=== PATIENT | female | born 1970 | race Caucasian/White ===

== ENCOUNTER 2018-06-09 13:00 | Inpatient (IN) | payer MEDICAID, OTHER ==
[~2018-06-09] VITALS: Ht 154.9 cm; Wt 73.6 kg
[2018-08-06] VITALS (35 sets, daily range): BP systolic 103–140; BP diastolic 61–81; PULSE 66–109; RESP 12–25; Ht 154.9 cm; Wt 73.6 kg
[2018-08-06] MEDS ORDERED: ONDANSETRON 4 MG INJ ONE (07:00)
[2018-08-06] MEDS ORDERED: METOPROLOL 5 MG INJ ONE (07:00)
[2018-08-06] MEDS ORDERED: CLINDAMYCIN 900 MG/50 ML D5W IVPB IVPB ONE (07:00)
[2018-08-06] MEDS ORDERED: METOCLOPRAMIDE 10 MG INJ ONE (07:00)
[2018-08-06] MEDS ORDERED: DEXAMETHASONE 4 MG/ML 5 ML INJ ONE (10:18)
[2018-08-06] MEDS ORDERED: LIDOCAINE 2% (SDV) 5 ML INJ ONE (10:18)
[2018-08-06] MEDS ORDERED: PROPOFOL 20 ML ONE (10:18)
[2018-08-06] MEDS ORDERED: MIDAZOLAM 1 MG/ML 2 ML INJ ONE (10:18)
[2018-08-06] MEDS ORDERED: ROCURONIUM 50 MG INJ ONE (10:18)
[2018-08-06] MEDS ORDERED: SUCCINYLCHOLINE CHLORIDE 100 MG/5 ML SYG IV ONE (10:18)
[2018-08-06] MEDS ORDERED: FENTAnyl 50 MCG/ML VIAL ONE (10:18)
--- NOTE | 2018-08-06 10:42 | PREAC ---
Date/Time of Note Date/Time of Note DATE: 08/06/18 TIME: 10:41 Anesthesia Eval and Record Evaluation Time Pre-Procedure Interview DATE: 08/06/18 TIME: 10:41 Age 47 Sex female NPO: 8 hrs Preoperative diagnosis cervical spinal stenosis Planned procedure anterior cervical spinal fusion/decompression Past Medical History Past Medical History: Includes Neuro: Peripheral neuropathy, Other (cervical radiculopathy) Surgery & Anesthesia Issues Hx of difficult intubation, No known issue Meds Anticoagulation: No Beta Skye within 24 hr: No Reason Beta Skye not given: Pt. not on B-Skye No Active Prescriptions or Reported Meds Meds reviewed: Yes Allergies Coded Allergies: Penicillins (Verified Allergy, Unknown, rash, dizziness, 08/06/18) Allergies Reviewed: Yes Labs/Studies Labs Reviewed: Reviewed by anesthesiologist test: Negative Pre-procedure Exam Last vitals Vital Signs Date Temp Pulse Resp B/P (MAP) Pulse Ox O2 O2 Flow FiO2 Time Delivery Rate 08/06/18 97.8 66 18 105/65 98 Room Air 09:57 (78) Airway: Adequate mouth opening, Adequate thyromental dist Mallampati: Mallampati III Teeth: Normal Lung: Normal Heart: Normal ASA Physical Status ASA physical status: 2 Emergency: None Planned Anesthetic General/MAC: ETT Planned Pain Management Parenteral pain med, Other neuraxial med, Local by surgeon Pre-operative Attestations Prior to commencing anesthesia and surgery, the patient was re-evaluated, there was verification of: *The patient's identity *The results of appropriate recent lab work and preoperative vital signs *The above evaluation not changing prior to induction *Anesthetic plan, risk benefits, alternative and complications discussed with patient/family; questions answered; patient/family understands, accepts and wishes to proceed. JENNIFER DE ANDA MD Aug 06, 2018 10:42
[2018-08-06] MEDS ORDERED: GELATIN SIZE 100 SPONGE ONE (10:44)
[2018-08-06] MEDS ORDERED: BUPIVACAINE 0.5%/EPI (SDV) 30 ML INJ ONE (10:45)
[2018-08-06] MEDS ORDERED: POLYMYXIN/BACITRACIN 1L IRRIG ONE (10:45)
[2018-08-06] MEDS ORDERED: THROMBIN 5000 UNIT VIAL ONE (10:45)
[2018-08-06] MEDS ORDERED: MIDAZOLAM 1 MG/ML 2 ML INJ IV PRN (11:00)
[2018-08-06] MEDS ORDERED: HYDROmorphONE 1 MG/5 ML IV SYRINGE IV PRN ×3 (11:00)
[2018-08-06] MEDS ORDERED: morphine 2 MG INJ IV PRN (11:00)
[2018-08-06] MEDS ORDERED: FENTAnyl 50 MCG/ML VIAL IV PRN ×2 (11:00)
[2018-08-06] MEDS ORDERED: HALOPERIDOL 5 MG INJ IV PRN (11:00)
[2018-08-06] MEDS ORDERED: LABETALOL HCL 20MG INJ IV PRN (11:00)
[2018-08-06] MEDS ORDERED: LEVALBUTEROL (NEB) 1.25 MG/0.5 ML AMP HHN PRN (11:00)
[2018-08-06] MEDS ORDERED: MEPERIDINE 25 MG INJ IV PRN (11:00)
[2018-08-06] MEDS ORDERED: IPRATROPIUM (NEB) 0.5 MG/2.5 ML AMP HHN PRN (11:00)
[2018-08-06] MEDS ORDERED: DIPHENHYDRAMINE 50 MG INJ IV PRN (11:00)
[2018-08-06] MEDS ORDERED: ONDANSETRON 4 MG INJ IV PRN (11:00)
[2018-08-06] MEDS ORDERED: niCARdipine 50 MG in SOD CHLORIDE 0.9% 480 ML IV SCH (11:00)
[2018-08-06] MEDS ORDERED: hydrALAzine 20 MG INJ IV PRN (11:00)
[2018-08-06] MEDS ORDERED: LORAZEPAM 2 MG INJ IV PRN (11:00)
--- NOTE | 2018-08-06 11:31 | HPN ---
Date/Time of Note Date/Time of Note DATE: 08/06/18 TIME: 11:30 Interval H&P Admission Note Pt. seen H&P reviewed: No system changes CLINT CARTER PA-C Aug 06, 2018 11:31
[2018-08-06] MEDS ORDERED: SUGAMMADEX SODIUM 200 MG/2 ML VIAL IV ONE (12:07)
[2018-08-06] MEDS ORDERED: HYDROmorphONE 2 MG/ML SYG ONE (12:19)
--- NOTE | 2018-08-06 12:30 | OPR ---
Date/Time of Note Date/Time of Note DATE: 08/06/18 TIME: 12:28 Operative Report Procedure Date: Aug 06, 2018 Preoperative Diagnosis CERVICAL SPONDYLOSIS WITH QUADRIPARESIS C5-6 CERVICAL CORD COMPRESSION WITH MYELOPATHY Postoperative Diagnosis SAME Operation/Procedure Performed CERVICAL PARTIAL VERTEBRECTOMY AND DISKECTOMY AT C5 AND C6 WITH INTERBODY FUSION AND ANTERIOR LOCKING PLATE Surgeon see signature line Leather Sponger FOREIGN COWAN Anesthesia Type: general Anesthesiologist: A Estimated Blood Loss: 10 - 50 ml's Transfusion none Specimen DISC OF C5-6 Grafts/Implants none Complications none Pt Condition Post Procedure: stable Disposition: PACU Procedure Description SEE DICTATION MARCUS ROBERSON MD Aug 06, 2018 12:30
--- NOTE | 2018-08-06 12:48 | NUR ---
PACU SP C5-6 CERVICAL ANTERIOR INSTRUMENTATION,FUSION, DECOMPRESSION DISCECTOMY.CERVICAL COLLAR APPLIED IN OR. ANTERIOR NECK DSG DRY/INTACT. VSS. NO SS OF ACUTE PAIN OR DISTRESS NOTED. CALLED , NEW ORDERS OBTAINED TO CHANGE PT STATUS TO MS. COND STABLE. Addendum: 08/06/18 at 1324 by JAYME BAR RN Amended: Links added.
--- NOTE | 2018-08-06 12:53 | PAC ---
Date/Time of Note Date/Time of Note DATE: 08/06/18 TIME: 12:52 Post-Anesthesia Notes Post-Anesthesia Note Last documented vital signs Vital Signs Date Temp Pulse Resp B/P (MAP) Pulse Ox O2 O2 Flow FiO2 Time Delivery Rate 08/06/18 97.8 66 18 105/65 98 Room Air 09:57 (78) Activity: WNL Respiratory function: WNL Cardiovascular function: WNL Mental status: Baseline Pain reasonably controlled: Yes Hydration appropriate: Yes Nausea/Vomiting absent: Yes JENNIFER DE ANDA MD Aug 06, 2018 12:53
[2018-08-06] MEDS: CLINDAMYCIN 600 MG/D5W (PMX) 50 ML IVPB SCH ×2 (14:00→18:00)
--- NOTE | 2018-08-06 15:09 | NUR ---
PACU TRANSFERRED TO ICU 103 IN STABLE COND. PT MED SURG STATUS. VSS AT TIME OF TRANSPORT. PAIN 0. REPORT GIVEN TO SCHOOL TRANSPORTATION SUPERVISOR. Addendum: 08/06/18 at 1812 by JAYME BAR RN Amended: Links added.
[2018-08-06] MEDS: DEXAMETHASONE 4 MG/ML 1 ML INJ IV SCH ×2 (15:30→20:05)
[2018-08-06] MEDS ORDERED: morphine 4 MG/ML VIAL ONE (15:38)
[2018-08-06] MEDS: HYDROCODONE/APAP (5/325) TAB PO PRN ×2 (15:48→23:48)
[2018-08-06] MEDS: DEXTROSE 5%-LR 1,000 ML IV SCH (16:00)
--- NOTE | 2018-08-06 22:54 | NUR ---
TRANSFER Report given to CECELIA Ignacio on 4W. All questions answered and care acknowledged/transferred. Pt. VSS and no complaints. emergency room technician notified.
--- NOTE | 2018-08-06 23:00 | HP ---
DATE OF ADMISSION: 08/06/2018 CHIEF COMPLAINT AND HISTORY OF PRESENT ILLNESS: The patient is a 47-year-old female who was seen by Dr. Roberson as an outpatient for cervical spondylosis with quadriparesis. The patient had C5-C6 cerv ical cord compression with myelopathy. The patient was brought into hospital today and underwent cer vical partial vertebrectomy and diskectomy at C5-C6 with interbody fusion and anterior locking plate. The patient is being admitted in ICU for further care. The patient has a C-spine collar at this ti me. Denies any chest pain or shortness of breath. No recent fall. No history of fever or chills. No history of bladder or bowel incontinence prior to surgery. No history of leg edema. No history o f shortness of breath. No history of cardiac disease, hypertension or diabetes. No history of CVA i n the past. REVIEW OF SYSTEMS: Other than postoperative pain and quadriparesis, rest of review of systems is unr emarkable. PAST SURGICAL HISTORY: The patient is status post x3. ALLERGIES: PENICILLIN. SOCIAL HISTORY: No smoking or alcohol. FAMILY HISTORY: Noncontributory. PHYSICAL EXAMINATION: GENERAL: The patient is awake, alert, fairly oriented. VITAL SIGNS: Temperature 98, pulse 106, respiratory rate ____, blood 130/70, and O2 sat 99% on room air. HEENT: Atraumatic. Conjunctivae normal. Oropharynx grossly negative. Examination was deferred due to recent surgery. NECK: C-spine collar in place. CHEST: Fairly clear. CARDIOVASCULAR: S1, S2 normal. No murmur. ABDOMEN: Soft and nontender. EXTREMITIES: No leg edema. NEUROLOGIC: The patient is awake, alert, fairly oriented with the generalized weakness, although det an examination was deferred due to recent postoperative state. The patient was able to move all e xtremities. IMPRESSION: Cervical spondylosis with quadriparesis at C5-C6, cervical cord compression with myelopa thy status post cervical partial vertebrectomy and diskectomy at C5-C6. PLAN: The patient will be admitted in ICU. The patient will be started on IV clindamycin as per pro tocol and IV fluids. The patient also will be given IV Decadron. For pain, patient will be started on Tylenol, Powell and IV morphine. We will use SCD for DVT prophylaxis. Plan of care was discussed with patient's family. We will do followup labs. Dictated By: SILVIA VANN/ALPHONSE Conf#: [id number] DID#: [id number] CC: MARCUS ROBERSON MD;*EndCC*
--- NOTE | 2018-08-06 23:20 | NUR ---
RN NOTES: RECEIVED PATIENT FROM ICU VIA WHEELCHAIR , ACCOMPANIED BY SPOUSE. ALERT AND ORIENTED, HAS CERVICAL DGS CDI, CERVICAL COLLAR IN USE. HL ON LEFT HAND PATENT. NOTED RIGHT FOREARM SWOLLEN, PATIENT REPORTED IT WAS AFTER THE SURGERY. PATIENT NOTED WITH STEADY GAIT FWW IN USE. WILLIAM CATHETER IN PLACE DRAINING CLEAR URINE. UNIT ORIENTATION GIVEN. CALL LIGHT WITHIN REACH. BED ALARM ACTIVATED.
[2018-08-06] MEDS: ONDANSETRON 4 MG INJ IV PRN (23:52)
[2018-08-07] VITALS: BP 140/67; PULSE 97; RESP 18
[2018-08-07] MEDS: CLINDAMYCIN 600 MG/D5W (PMX) 50 ML IVPB SCH ×4 (00:15→17:53)
--- NOTE | 2018-08-07 01:30 | NUR ---
RN NOTES: BILATERAL FEET NOTED WITH TRACE OF SWELLING. ELEVATED BOTH FEET ON PILLOWS.
[2018-08-07] MEDS: DEXAMETHASONE 4 MG/ML 1 ML INJ IV SCH ×3 (04:46→11:52)
[2018-08-07] MEDS: DEXTROSE 5%-LR 1,000 ML IV SCH ×3 (05:30→11:51)
--- NOTE | 2018-08-07 06:31 | NUR ---
EOSS: PATIENT BEEN ASSESSED FOR PAIN, AND MEDICATED WITH NORCO NEEDED. CERVICAL DSG REMAIN CDI. COLLAR IN USE AT ALL TIME. WILLIAM CONTINUE TO DRAIN YELLOW CLEAR URINE. TOLERATING CLEAR LIQUIDS. VITALS STABLE. HOURLY ROUNDING RENDERED. CALL LIGHT WITHIN REACH. FALL PRECAUTION OBSERVED.
[2018-08-07 07:29] VITALS: BP 117/66; PULSE 101; RESP 19
[2018-08-07] MEDS: HYDROCODONE/APAP (5/325) TAB PO PRN ×2 (10:29→17:58)
--- NOTE | 2018-08-07 15:16 | NUR ---
PT VERONICA [facility] Patient: Jacqui Martinez : 1970 Age/Sex: 47/F Unit#: [id number] Room/Bed: 426/A User: Srinivasan Mcdonough PT Date: 08/07/18 14:36 Type: PT Technical Record Therapy day number 1 Evaluation Start Time 14:36 Evaluation Total Time 0 min Subjective Current complaint of pain Pain Scale NUMERIC Pain Intensity 2 (0-10) Patient Stated Goal for Pain Relief 0 (0-10) Pain Level Comment neck pain and headache Pre Treatment Vital Signs Stable Yes - 109/62, 96%O2 sats on RA, 91bpm Exercise Assessment Label Bilat Lower Extremity Exercise Type Active ROM Additional Exercise Comments semi-supine APs, heel slides Supine to Sit Contact Guard Assist Transfer Sit to Stand Ability Contact Guard Assist Bed Mobility Sit to Supine Minimum Assist Bed Transfer Ability Contact Guard Assist Chair Transfer Ability Contact Guard Assist Sitting Tolerance 12 min Additional Mobility Comments log-roll technique supine<>sitting Patient uses wheelchair Not Applicable Gait Assist Levels Stand by Assist Assistive Devices Front Wheel Walker Ambulation Distance 70 feet Additional Gait Comments 70' x 3 with FWW and standing rest breaks between ambulation bouts; see PT Weight Bearing Assessment Label Bilat Lower Extremity Weight Bearing Status Weight Bearing as Li Additional Stairs Assist Comments TBA Static Sitting Balance Good Dynamic Sitting Balance Good Standing Static Balance Fair plus Dynamic Standing Balance Fair plus Additional Balance Assessments Comments FWW Safety Judgement Good Activity Tolerance Good Equipment Present Hull Catheter IV pump Additional Equipment Present rigid cervical collar Post Treatment Pain Intensity 0 0-10 Variance Documentation SEE PT EVAL PT Technical Record Comment PT VERONICA Pt is a 47 yo F with PMH of cervical spondylosis with quadriparesis, cervical cord compression with myelopathy who is now S/P partial vertebrectomy and diskectomy at C5-C6 with interbody fusion and anterior lock plate on 08/06/18. Pt received in 4W, med/surg. Precautions: rigid cervical collar, spinal precautions PLOF: Pt lives with and dtrs in 2nd floor apartment with no elevator access. Ambulatory without AD, does not own any DME. Pt was not working, and was driving prior to surgery. CLOF: CECELIA Ewing cleared pt for PT evaluation. Pt received semi-supine in bed donning rigid cervical collar, agreeable to PT evaluation, vitals assessed and stable, family at bedside. Pt educated in spinal precautions and use of rigid cervical collar. Noted with ROM testing, pt with B poiser weakness. Bed mobility, transfer, and gait assessment as described above. Noted with gait, pt required standing rest breaks after ~70' reporting increased R-sided hand, shoulder/neck discomfort. Pt returned to bed, all needs in reach, no signs of disterss, bed alarm activated, RN notified of pt's status. Recommendation: Pt demonstrates steady, stable gait with use of FWW and demonstrates safety with mobility tasks maintaining spinal precautions. Gait distance limited to 70' bouts due to increased R hand and neck/shoulder discomfort. Recommend SPC training or amb without AD if pt presents with good static standing balance. Stair assessment TBA. Anticipating home discharge with family assistance as needed, pt with good family support. Anticipated DME TBD. Plan: Continue c PT POC (BID x 6), including stair training PT CLEARED TO AMB WITH NURSING STAFF TO RESTROOM USING FWW
[2018-08-07 15:59] VITALS: BP 121/62; RESP 19
--- NOTE | 2018-08-07 18:15 | CONS ---
Date/Time of Note Date/Time of Note DATE: 08/07/18 TIME: 18:14 Assessment/Plan Assessment/Plan Assessment/Plan seen/examined awake alert follows moves all c5-6 acdf good post op progress wound looks ok cont pt/ot poss dc home in 24hrs. Result Diagram: 08/07/18 0419 08/07/18 0419 Results 24hrs Laboratory Tests Test 08/07/18 04:19 White Blood Count 9.9 Red Blood Count 3.59 L Hemoglobin 11.7 L Hematocrit 34.0 L Mean Corpuscular Volume 94.7 Mean Corpuscular Hemoglobin 32.6 Mean Corpuscular Hemoglobin Concent 34.4 Red Cell Distribution Width 12.2 Platelet Count 264 Mean Platelet Volume 10.5 H Immature Granulocytes % 0.300 Neutrophils % 91.6 H Lymphocytes % 5.6 L Monocytes % 2.3 Eosinophils % 0.0 Basophils % 0.2 Nucleated Red Blood Cells % 0.0 Immature Granulocytes # 0.030 Neutrophils # 9.1 H Lymphocytes # 0.6 L Monocytes # 0.2 L Eosinophils # 0.0 Basophils # 0.0 Nucleated Red Blood Cells # 0.0 Sodium Level 137 Potassium Level 4.0 Chloride Level 107 Carbon Dioxide Level 22 Anion Gap 8 Blood Urea Nitrogen 9 Creatinine 0.41 L Est Glomerular Filtrat Rate mL/min > 60 Glucose Level 197 Calcium Level 8.9 Total Bilirubin 0.1 L Direct Bilirubin 0.00 Indirect Bilirubin 0.1 Aspartate Amino Transf (AST/SGOT) 21 Alanine Aminotransferase (ALT/SGPT) 20 Alkaline Phosphatase 45 Total Protein 6.1 Albumin 3.6 Globulin 2.50 Albumin/Globulin Ratio 1.44 Consultation Date/Type/Reason Admit Date/Time Aug 06, 2018 at 08:30 Initial Consult Date Exam/Review of Systems Vital Signs Vitals Vital Signs Date Temp Pulse Resp B/P (MAP) Pulse Ox O2 O2 Flow FiO2 Time Delivery Rate 08/07/18 19 121/62 96 15:59 (81) 08/07/18 98.2 101 07:29 08/06/18 Room Air 22:00 08/06/18 2.0 15:05 Intake and Output 08/06/18 08/06/18 08/07/18 1515:00 23:00 07:00 IntakeIntake Total 1000 ml 870 ml 700 ml OutputOutput Total 125 ml 250 ml 1200 ml BalanceBalance 875 ml 620 ml -500 ml Medications Medications Current Medications Ondansetron HCl (Zofran Inj) 4 mg Q6H PRN IV NAUSEA AND/OR VOMITING Last administered on 08/06/18at 23:52; Admin Dose 4 MG; Start 08/06/18 at 11:00 Morphine Sulfate (morphine) 2 mg Q4H PRN IV SEVERE PAIN LEVEL 7-10; Start 08/06/18 at 11:00 Acetaminophen/ Hydrocodone Bitart ([place] (5/325)) 1 tab Q4H PRN PO MODERATE PAIN LEVEL 4-6 Last administered on 08/07/18at 17:58; Admin Dose 1 TAB; Start 08/06/18 at 11:00 Clonidine (Catapres) 0.1 mg Q6H PRN PO ELEVATED DIASTOLIC BP; Start 08/06/18 at 13:30 Acetaminophen (Tylenol Tab) 500 mg Q4H PRN PO MILD PAIN(1-3)OR ELEVATED TEMP; Start 08/06/18 at 23:00 Clindamycin HCl/ Dextrose 50 ml @ 50 mls/hr Q6 IVPB Last administered on 08/07/18at 17:53; Admin Dose 50 MLS/HR; Start 08/07/18 at 00:00; Stop 08/07/18 at 23:59 CLINT CARTER PA-C Aug 07, 2018 18:15
[2018-08-07] MEDS: ONDANSETRON 4 MG INJ IV PRN (18:50)
[2018-08-07] MEDS: ACETAMINOPHEN 500 MG TAB PO PRN (18:56)
--- NOTE | 2018-08-07 19:19 | NUR ---
Patient is alert and oriented x4, able to make needs known; PRN [place] and TYL given as needed for headache with good effectiveness noted; no episode of SOB/respiratory distress noted this shift; patient c/o nausea, PRN Zofran given as ordered; patient ambulated with PT and was cleared to ambulate with nursing; dressing to anterior neck incision is clean, dry and intact with rigid cervical collar in place; Hull catheter was removed as ordered, patient still due to void, will endorse to next shift RN; kept clean and comfortable; all needs attended.
[2018-08-07 20:15] VITALS: BP 135/68; PULSE 86; RESP 18
--- NOTE | 2018-08-07 23:00 | NUR ---
RN NOTES Report given to Natalia RAI for continuity of care
[2018-08-08 02:00] VITALS: BP 130/62; PULSE 93; RESP 18
--- NOTE | 2018-08-08 06:49 | NUR ---
EOSS: RECEIVED REPORT FROM TOMAS, PATIENT STABLE THE ENTIRE SHIFT, DENIES PAIN, CERVICAL COLLAR IN PLACE, DRESSING DRY & INTACT. NEEDS MET & KEPT COMFORTABLE. WILL CONTINUE POC.
[2018-08-08 07:42] VITALS: BP 119/68; PULSE 69; RESP 16
--- NOTE | 2018-08-08 09:37 | CONS ---
Date/Time of Note Date/Time of Note DATE: 08/08/18 TIME: 09:37 Assessment/Plan Assessment/Plan Assessment/Plan seen/ examined awake alert follows moves all minimal pain wound ok may go home. Result Diagram: 08/07/18 0419 08/07/18 0419 Results 24hrs Laboratory Tests Test 08/08/18 07:03 Lab Scanned Report REFERENCE LAB Consultation Date/Type/Reason Admit Date/Time Aug 06, 2018 at 08:30 Initial Consult Date Exam/Review of Systems Vital Signs Vitals Vital Signs Date Temp Pulse Resp B/P (MAP) Pulse Ox O2 O2 Flow FiO2 Time Delivery Rate 08/08/18 98.4 69 16 119/68 100 Room Air 07:42 (85) 08/06/18 2.0 15:05 Intake and Output 08/07/18 08/07/18 08/08/18 1515:00 23:00 07:00 IntakeIntake Total 50 ml 900 ml OutputOutput Total 1800 ml BalanceBalance 50 ml -900 ml Medications Medications Current Medications Ondansetron HCl (Zofran Inj) 4 mg Q6H PRN IV NAUSEA AND/OR VOMITING Last administered on 08/07/18at 18:50; Admin Dose 4 MG; Start 08/06/18 at 11:00 Morphine Sulfate (morphine) 2 mg Q4H PRN IV SEVERE PAIN LEVEL 7-10; Start 08/06/18 at 11:00 Acetaminophen/ Hydrocodone Bitart ([place] (5/325)) 1 tab Q4H PRN PO MODERATE PAIN LEVEL 4-6 Last administered on 08/07/18at 17:58; Admin Dose 1 TAB; Start 08/06/18 at 11:00 Clonidine (Catapres) 0.1 mg Q6H PRN PO ELEVATED DIASTOLIC BP; Start 08/06/18 at 13:30 Acetaminophen (Tylenol Tab) 500 mg Q4H PRN PO MILD PAIN(1-3)OR ELEVATED TEMP Last administered on 08/07/18at 18:56; Admin Dose 500 MG; Start 08/06/18 at 23:00 CLINT CARTER PA-C Aug 08, 2018 09:37
--- NOTE | 2018-08-08 10:12 | NUR ---
PT NOTE Therapy day number 2 Subjective Denies pain Pain Scale FACES Pain Intensity 0 (0-10) Patient Stated Goal for Pain Relief 0 (0-10) Pain Level Comment neck "tight", deneis pain, declines pain med Pre Treatment Vital Signs Stable Yes Exercise Assessment Label Bilat Lower Extremity Additional Exercise Comments bed mobility tr with log rolling Transfer Training Start Time 10:12 Transfer Sit to Stand Ability Stand by Assist Bed Mobility Sit to Supine Contact Guard Assist Bed Transfer Ability Stand by Assist Chair Transfer Ability Stand by Assist Sitting Tolerance 15 min Additional Mobility Comments log-roll technique supine<>sitting, FWW for transfers Transfer Training End Time 10:26 Total Transfer Training Time 14 min (8-127) Gait Training Start Time 10:26 Gait Assist Levels Stand by Assist Assistive Devices Front Wheel Walker Ambulation Distance 150 feet Additional Gait Comments mult stand rest breaks 2/2 fatigue, rciprocal, decr aramis, no LOB/dizz Gait Training End Time 10:40 Total Gait Training Treatment Time 14 min (8-127) Weight Bearing Assessment Label Bilat Lower Extremity Weight Bearing Status Weight Bearing as Harlan Stair Training Start Time 10:40 Stair Climbing Ability Stand by Assist Number of Stairs 12 Stairs Additional Stairs Assist Comments 4 stairs x3, 2 HR, step to, no LOB/buckling/dizz Stair Training End Time 10:50 Total Stair Training Time 10 min (8-127) Static Sitting Balance Good Dynamic Sitting Balance Good Standing Static Balance Fair plus Dynamic Standing Balance Fair plus Additional Balance Assessments Comments FWW Safety Judgement Good Activity Tolerance Good Equipment Present A pump Additional Equipment Present rigid cervical collar Post Treatment Pain Intensity 0 0-10 Additional Post Treatment Comment See Below Total Treament Time 38 min (8-127) Total Minutes 38 Total Units 3 PT Technical Record Comment PT NOTE S: Pt reports no pain, or dizziness pre-tx, agreeable to PT. Cleared for PT Per CECELIA Selby. O: Pt received sitting in chair at bedside, family present in room, alert and oriented, no apparent distress , with rigid c/s collar in place, on RA. Performed transfer, gait and stair tr per tech record above with FWW SBA. Pt positioned for comfort in semifowler post-tx with call light and needs in reach, family present in room. Bed alarm armed post-tx A: Pt harlan tx fairly, limited by decreased endurance P: Cont POC
--- NOTE | 2018-08-08 11:48 | PN ---
DATE: 08/07/2018 SUBJECTIVE: The patient's postoperative pain is well controlled. The patient denies any chest pain or shortness of breath. No history of fever or chills. No reported vomiting. PHYSICAL EXAMINATION: GENERAL: The patient be awake, alert. VITAL SIGNS: Temperature 98.2, pulse 101, respiration 19, blood pressure 117/66, O2 saturation 98% o n room air. HEENT: No eye discharge or redness. Conjunctiva is normal. Oropharynx grossly negative. NECK: C-spine collar in place. CHEST: Fairly clear. CARDIOVASCULAR: S1, S2 normal, no murmur. ABDOMEN: Soft, nondistended, nontender. EXTREMITIES: No leg edema. NEUROLOGIC: The patient is awake, alert, follows simple commands with no gross focal deficit. LABORATORY DATA: WBC 9.9, hemoglobin 11.7, platelet 264: Chemistry; Sodium 137, potassium 4, BUN 9, creatinine 0.4. IMPRESSION: Cervical spondylosis with C5-C6, cervical cord compression with myelopathy status post ce rvical partial vertebrectomy and diskectomy. Medication list reviewed. Continue pain management with Tylenol, [place] and IV morphine depending upo n severity. Continue SCD for DVT prophylaxis. Further recommendation will depend on patient's hospi atul course and recommendation of Dr. Roberson. Dictated By: SILVIA VANN/ALPHONSE Conf#: [id number] DID#: [id number] CC: MARCUS ROBERSON MD;*EndCC*
--- NOTE | 2018-08-08 12:30 | NUR ---
ORDER FOR FWW[phone] FAXED TO [facility] TO [phone] OBTAINED FWW FROM [facility] CLOSET AND DELIVERED TO PATIENT'S ROOM.
--- NOTE | 2018-08-08 13:17 | PDOCDIS ---
Discharge Instructions HOME CARE INSTRUCTIONS: [id number] Diet Instructions: [id number] Regular ACTIVITY: [id number] Activity Restrictions: [id number] Slowly Increase Activity Rest between Activity Avoid heavy lifting Do not Drive [id number] Activity Restrictions Comment: [id number] NO SHOWER UNTIL OKD BY MD FOLLOW UP/APPOINTMENTS Follow-up Plan - FU with Primary MD in 1 week - FU with NEURU surgery as recommended - Call 911 or go to the nearest hospital if symptoms get worse.Patient and her daughter verbalized understanding ar instructions - staff / FAITH Mix Aug 08, 2018 13:17
[2018-08-08] MEDS ORDERED: CLON0.1T14 PO (13:22)
--- NOTE | 2018-08-08 13:22 | DS ---
Date/Time of Note Date/Time of Note DATE: 08/08/18 TIME: 13:22 Discharge Summary Admission/Discharge Info Admit Date/Time Aug 06, 2018 at 08:30 Discharge Date/Time Home Meds Active Scripts Clonidine Hcl* (Catapres*) 0.1 Mg Tablet, 0.1 MG PO Q6H PRN for ELEVATED DIASTOLIC BP, #20 TAB Prov:FAITH THOMAS 08/08/18 Follow-up Plan - FU with Primary MD in 1 week - FU with NEURU surgery as recommended - Call 911 or go to the nearest hospital if symptoms get worse.Patient and her daughter verbalized understanding dc instructions - [facility] staff / Dr Marrero Primary Care Provider Not On Staff Doctor Pending Labs Laboratory Tests Test 08/08/18 07:03 Lab Scanned Report REFERENCE LAB [id number] FAITH THOMAS Aug 08, 2018 13:22
[2018-08-08] MEDS: ACETAMINOPHEN 500 MG TAB PO PRN (13:34)
--- NOTE | 2018-08-08 14:00 | NUR ---
Patient is alert and oriented x4, able to make needs known; PRN [place] and TYL given as needed for headache with good effectiveness noted; no episode of SOB/respiratory distress noted this shift; patient ambulated with PT with FWWand was cleared for discharge; dressing to anterior neck incision is clean, dry and intact with rigid cervical collar in place; kept clean and comfortable; all needs attended.
--- NOTE | 2018-08-08 14:56 | NUR ---
DAIRY FARM OPERATOR NOTES: Patient was cleared by Wander CARRASQUILLO and Ezequiel MEDICAL PROGRAM SPECIALIST for discharge; all discharge instructions given and patient verbalized by the patient; no home medication prescribed; IV line was discontinued with tip intact; discharged patient with FWW as ordered; dressing to anterior neck incision is clean and dry with rigid cervical collar in place; all needs attended; to follow-up with Dr. Wolff and Primary MD in 1-2 weeks.
--- NOTE | 2018-08-08 15:15 | NUR ---
CALLED [facility] - [phone] - SPOKE WITH TABITHA ON-CALL - MADE AWARE OF [facility] ORDER - GAVE DME FROM [facility] - TABITHA WILL ENTER AUTHORIZATION FOR DME.
--- NOTE | 2018-08-13 08:06 | PREOPHP ---
DATE OF ADMISSION: 08/06/2018 HISTORY OF PRESENT ILLNESS: Patient is a 47-year-old female who was recently seen in the office for evaluation of neck pain, shoulder pain, and arm pain. Patient was diagnosed with cervical 5 and 6 disc herniation. Conservative management was offered to the patient did not improve. She also received physical therapy as well as pain management without much relief. getting worse. She is having more symptoms, more neck pain, more shoulder pain, . She wants something more definitive to be done. risks and complications explained. Patient understands and wants to proceed . PAST MEDICAL HISTORY: . MEDICATIONS: . PHYSICAL EXAMINATION: Patient is awake, alert and oriented . IMPRESSION: were discussed with the patient including infection, injury, stroke, heart attack, even . . She will be admitted to the hospital . Dictated By: Jono Wolff MD /justin/rere /Document#: [id number]
--- NOTE | 2018-08-13 08:06 | OPR ---
DATE OF OPERATION: 08/06/2018 SURGEON: Jono Wolff MD. QUALIFIED CRAFT WORKER ELECTRICIAN: Wander Lott PA-C. PREOPERATIVE DIAGNOSIS: Cervical spondylosis. Cervical stenosis, cervical radiculopathy with myelopathy, with cord compression and early quadriparesis C5-C6 level. POSTOPERATIVE DIAGNOSIS: Quadriparesis. OPERATION PERFORMED: 1. C5 partial vertebrectomy, anterior (CPT 94214). 2. C6 partial vertebrectomy, anterior (CPT 70275). 3. C5-C6, anterior cervical interbody arthrodesis (CPT 69215). 4. C5-C6, anterior cervical instrumentation utilizing [employer] Vectra T plate (CPT 52863). 5. Placement of allograft with a DBX for interbody fusion (CPT 37244). COMPLICATIONS: None. ANESTHESIA: General endotracheal. ESTIMATED BLOOD LOSS: Less than 50 mL. COUNTS: Needle counts, sponge counts were correct. SPECIMEN: Multiple fragments of disks was sent to pathology. INDICATIONS: Please refer to my consultation. The patient is well known to me, he is 47. Complains of neck pain, shoulder pain and arm pain as well as pain to bilateral upper extremities. Bilateral lower extremity weakness, bilateral upper extremities. The procedure of partial vertebrectomy, discectomy, fusion and instrumentation. Discussed the operation including anesthesia infection bleeding, allergic reaction, and were explained. The patient agreed to proceed with the operation and signed the consent. OPERATION PERFORMED: The patient was placed supine position and general endotracheal anesthesia was obtained. The neck was place semi-extended position. The neck was infiltrated with lidocaine with epinephrine solution. The incision was opened with a 10 blade. After this, the x-ray confirmed the position. The incision was made with sub-platysmal dissection to the anterior cervical fascia which was retracted immediately superiorly inferiorly with [place] retractors that were placed on the longus colli muscles. Following this, the x-ray confirmed the patient has disc herniation at the level of C5-C6. Discectomy of C5-6 was done, but there was large osteophyte formation at this site. During this, I decided to do partial vertebrectomy of the inferior aspect of C5, superior aspect of C6 all the way to the posterior longitudinal ligament which was opened with a curette and then following that, removed with the [place] punches. Following this, decompression of spinal canal at the spinal margin showed the improvement signal. I started interbody fusion utilizing MTS1 ACF spacer that was 9 mm long that was packed with demineralized bone matrix. Tapped in place at the level of C5-6 achieving interbody arthrodesis. Following this, the area was irrigated with bacitracin and saline solution. The Vectra T plate provided by the [employer] was brought into the field. A 14 mm plate was affixed to the cervical spine, utilizing size 14 mm screws. The top was removed from the plate and the plate was washed, irrigated and everything was torque tightened. Fluoroscopy showed good position of the plate and screws. Closure was done with #0 Vicryl for the platysma, #4 nylon subcuticular fashion for the skin with stay sutures for the skin. Patient the procedure well and was taken to postanesthesia recovery in stable condition. Dictated By: Jono Wolff MD /justin/parag /Document#: [id number] ADAIR
== END 2018-08-08 14:45 | disposition home or self-care (01) | DRG 471 ==
LOC: REC 08-06 08:30 → ICU 08-06 15:21 → MS1 08-06 23:20
PROVIDERS: ADMIT Neurological Surgery; ATTEND Neurological Surgery
PROC: 0RB30ZZ Excision of Cervical Vertebral Disc, Open Approach (ICD-10-PCS; 2018-08-06)
PROC: 0RG10K0 Fusion of Cervical Vertebral Joint with Nonautologous Tissue Substitute, Anterior Approach, Anterior Column, Open Approach (ICD-10-PCS; principal; 2018-08-06 10:30)
DX: M47.12 Other spondylosis with myelopathy, cervical region (principal); G82.50 Quadriplegia, unspecified; M48.02 Spinal stenosis, cervical region; M47.22 Other spondylosis with radiculopathy, cervical region
CPT/HCPCS: 72050; 80053; 85025; 86850; 86870; 86900; 86901; 87081; 87086; 97116; 97161; 97530; C1713; C1762; J1100; J1170; J2250; J2270; J2405; J2765; J3010; J7121